=== PATIENT | male | born 1980 | race Caucasian/White ===

== ENCOUNTER 2020-09-20 15:56 | Emergency (ER) | payer OTHER ==
[2020-09-20 17:51] LABS: BASOPHIL 0.3 % (0-2); EOSINOPHIL 0.5 % (0-5); HGB 13.9 g/dl (13.2-18.0); LYMPHOCYTE 14.4 % (15-48); MCH 30.3 pg (25.0-31.0); MCHC 36.6 g/dL (32.0-36.0); MONOCYTE 5.9 % (0-12); MPV 10.3 fL (6.0-9.5); NEUTROPHIL 78.6 % (41-80); NRBC 0; PLT 236 K/uL (150-400); RBC 4.58 M/uL (4.70-6.00); RDW 13.3 % (11.5-14.0)
[2020-09-20 18:07] LABS: ALBUMIN 3.8 g/dL (3.4-5.0); BILIRUBIN - TOTAL 2.4 mg/dL (0.2-1.0); BUN/CREAT RATIO (CALC) 8.6 RATIO; CREATININE 2.79 mg/dL (0.67-1.17); GLOBULIN (CALCULATION) 3.3 g/dL; POTASSIUM 2.7 mmol/L (3.5-5.1); TOTAL PROTEIN 7.1 g/dL (6.4-8.2)
[2020-09-20 20:10] LABS: BILIRUBIN NEGATIVE (NEGATIVE); BLOOD 1+ Ery/uL (NEGATIVE); CLARITY CLEAR (CLEAR); COLOR YELLOW (YELLOW); GLUCOSE (U) TRACE mg/dL (NORMAL); LEUKOCYTES NEGATIVE Leu/uL (NEGATIVE); NITRITE NEGATIVE (NEGATIVE); PROTEIN 3+ mg/dL (NEGATIVE); UROBILINOGEN 0.2 mg/dL (0.2-1.0); pH 6.5 (5.0-9.0)
[2020-09-20 20:23] LABS: SQUAMOUS EPITHELIAL CELLS RARE
== END 2020-09-20 22:00 | disposition left against medical advice (07) ==
LOC: FER 15:56
PROVIDERS: Emergency Medicine Emergency Medical Services
DX: I10 Essential (primary) hypertension (principal); I21.4 Non-ST elevation (NSTEMI) myocardial infarction; J96.00 Acute respiratory failure, unspecified whether with hypoxia or hypercapnia; J81.0 Acute pulmonary edema; E87.6 Hypokalemia; F17.210 Nicotine dependence, cigarettes, uncomplicated; Z53.8 Procedure and treatment not carried out for other reasons
CPT/HCPCS: 36415; 70450; 71045; 80053; 81001; 83735; 84484; 85025; 93005; 96372; J1650; J1940; J3480; J3490; J7030; J7060

== ENCOUNTER 2021-03-04 03:48 | Emergency (ER) | payer OTHER ==
[2021-03-04] MEDS ORDERED: ROBAXIN750 MG PO (05:16)
[2021-03-04] MEDS ORDERED: NAPROXEN500 MG PO (05:16)
[2021-03-04] MEDS ORDERED: NORCO 5-325 TA1 EACH PO (05:16)
== END 2021-03-04 06:10 | disposition home or self-care (01) ==
LOC: FER 03:48
DX: M54.42 Lumbago with sciatica, left side (principal); I25.2 Old myocardial infarction; I10 Essential (primary) hypertension; F17.200 Nicotine dependence, unspecified, uncomplicated
CPT/HCPCS: 96372; 99283; J1040; J1885